=== PATIENT | male | born 1955 | race Caucasian/White ===

== ENCOUNTER 2021-09-29 09:29 | Inpatient (IN) | payer OTHER, SELFPAY ==
[~2021-09-29 09:29] MED LIST: Lorazepam 1 MG TAB PO PRN
[2021-09-29 11:15] LABS: Hemoglobin 15.7 g/dL (14.0-18.0); Mean Corpuscular HGB CONC 33.5 g/dL (32.0-36.0); Mean Corpuscular Hemoglobin 31.7 pg (27.0-31.0); Mean Corpuscular Volume 94.5 fL (78.0-98.0); Mean Platelet Volume 7.9 fL (7.4-10.4); Platelet Count 165 thou/uL (130-400); RBC Distribution Width 12.4 % (11.5-14.5); Red Blood Cell (RBC) Count 4.96 mill/uL (4.70-6.10); White Blood Cell (WBC) Count 3.8 thou/uL (4.8-10.8)
[2021-09-29 11:31] LABS: Band 5 % (5-11); Lymphocytes 19 % (21-51); MDiff Complete? YES; Metamyelocyte 1 % (0-0); Monocytes 13 % (0-10); Neutrophil 44 % (42-75); RBC Morphology Normal; Reactive Lymphocytes 15 % (0-10)
[2021-09-29 11:33] LABS: ALT (SGPT) 14 U/L (8-55); AST (SGOT) 21 U/L (5-34); Alkaline Phosphatase 81 U/L (40-110); Anion Gap 12 mmol/L (10-20); BUN (Urea Nitrogen) 10 mg/dL (8.4-25.7); Bilirubin, Total 0.4 mg/dL (0.2-1.2); Calc. Creatinine Clearance 0 mL/min (70-130); Calcium 9.6 mg/dL (7.8-10.44); Carbon Dioxide 29 mmol/L (23-31); Chloride 101 mmol/L (98-107); Globulin 2.8 g/dL (2.4-3.5); Glucose 93 mg/dL (80-115); Potassium 3.8 mmol/L (3.5-5.1); Protein, Total 6.8 g/dL (5.8-8.1); Sodium 138 mmol/L (136-145)
[2021-09-29] MEDS ORDERED: Magnesium 2 GM/50 ML BAG (IN WATER) ONE (11:45)
[2021-09-29] MEDS ORDERED: Folic Acid 1 MG, Multivitamins, Adult 10 ML in Dextrose 5 %-0.45 % NaCl 1,000 ML IV SCH (12:00)
[2021-09-29] MEDS ORDERED: Thiamine HCl 200 MG/2 ML VIAL SLOW IVP SCH (12:00)
[2021-09-29 12:28] LABS: Bacteria/HPF None Seen HPF (None Seen); Bilirubin Negative (Negative); Blood, Urine 1+ (Negative); Clarity Clear (Clear); Glucose, Urine (Dipstick) Normal (Negative); Ketone, Urine Negative (Negative); Leukocyte Negative Leu/uL (Negative); Nitrite Negative (Negative); Protein, Urine (Dipstick) 20 mg/dL (Neg-Trace); RBC/HPF 0-3 HPF (0-3); Specific Gravity, Urine 1.023 (1.002-1.036); Squamous Epithelial 0-3 HPF (0-3); Urobilinogen Normal mg/dL (Less than 2); WBC/HPF 0-3 HPF (0-3); pH, Urine 5.5 (5.0-9.0)
[2021-09-29 12:46] LABS: CKMB 1.1 ng/mL (0-6.6)
[2021-09-29] MEDS ORDERED: Aspirin Chewable 81 MG TAB ONE (13:39)
[2021-09-29 15:14] LABS: Troponin I 0.024 ng/mL (< 0.028)
[2021-09-29] MEDS ORDERED: Ondansetron ODT 4 MG TAB PO PRN ×2 (15:58→21:45)
[2021-09-29 18:28] LABS: Troponin I 0.037 ng/mL (< 0.028)
[2021-09-29 19:46] VITALS: BMI 19.8
[2021-09-29] MEDS: Sodium Chloride 0.9% 1,000 ML IV SCH (20:45)
[2021-09-29] MEDS: Famotidine 20 MG TAB PO SCH (20:45)
[2021-09-29] MEDS ORDERED: Lorazepam 1 MG TAB PO PRN (21:40)
[2021-09-29] MEDS: Lorazepam 1 MG TAB PO SCH ×3 (21:41→21:48)
[2021-09-29] MEDS ORDERED: Lorazepam 2 MG/ML VIAL IM PRN (21:45)
[2021-09-29] MEDS ORDERED: Electrolyte Replacement Protocol 1 EACH FS PRN (21:45)
[2021-09-30] MEDS: Sodium Chloride 0.9% 1,000 ML IV SCH ×4 (03:26→23:47)
[2021-09-30 04:44] LABS: Hemoglobin 16.3 g/dL (14.0-18.0); Mean Corpuscular HGB CONC 33.3 g/dL (32.0-36.0); Mean Corpuscular Hemoglobin 31.3 pg (27.0-31.0); Mean Corpuscular Volume 94.2 fL (78.0-98.0); Mean Platelet Volume 7.9 fL (7.4-10.4); Platelet Count 141 thou/uL (130-400); RBC Distribution Width 12.3 % (11.5-14.5); White Blood Cell (WBC) Count 4.5 thou/uL (4.8-10.8)
[2021-09-30] MEDS: Lorazepam 1 MG TAB PO SCH ×4 (05:20→21:56)
[2021-09-30 05:59] LABS: ALT (SGPT) 15 U/L (8-55); AST (SGOT) 26 U/L (5-34); Albumin 3.9 g/dL (3.4-4.8); Alkaline Phosphatase 76 U/L (40-110); Anion Gap 11 mmol/L (10-20); BUN (Urea Nitrogen) 9 mg/dL (8.4-25.7); Bilirubin, Total 0.4 mg/dL (0.2-1.2); Calc. Creatinine Clearance 92 mL/min (70-130); Calcium 9.1 mg/dL (7.8-10.44); Carbon Dioxide 28 mmol/L (23-31); Cardiac Risk 4.4 (Less than 4.5); Chloride 101 mmol/L (98-107); Cholesterol 175 mg/dl (< 200 Desired); Globulin 2.5 g/dL (2.4-3.5); Glucose 99 mg/dL (80-115); HDL Cholesterol 40 mg/dL (>60 Neg Risk); LDL Cholesterol, Calculated 119 mg/dL; Phosphorus 3.2 mg/dL (2.3-4.7); Potassium 3.6 mmol/L (3.5-5.1); Protein, Total 6.4 g/dL (5.8-8.1); Sodium 136 mmol/L (136-145); Triglycerides 78 mg/dL (Less than 150)
[2021-09-30] MEDS ORDERED: Lorazepam 1 MG TAB PO SCH (06:00)
[2021-09-30] MEDS ORDERED: Magnesium 2 GM/50 ML 2 GM in Premix Bag 1 BAG IVPB SCH (06:15)
[2021-09-30 06:42] LABS: Band 10 % (5-11); Lymphocytes 20 % (21-51); MDiff Complete? YES; Monocytes 13 % (0-10); Neutrophil 57 % (42-75)
[2021-09-30] MEDS ORDERED: FLU VACC QS2021-22(6MOS UP)/PF 60 MCG/0.5 ML SYRINGE IM ONE (09:00)
[2021-09-30] MEDS: Famotidine 20 MG TAB PO SCH ×2 (09:28→20:20)
[2021-09-30] MEDS: Aspirin 81 mg Enteric Coated Tablet PO SCH (09:28)
[2021-09-30] MEDS: Folic Acid 1 MG TAB PO SCH (09:28)
[2021-09-30] MEDS: Thiamine HCl 200 MG/2 ML VIAL SLOW IVP SCH (09:33)
[2021-09-30 11:10] LABS: SARS-CoV-2 PCR by NAA DETECTED (NotDetected)
[2021-09-30] MEDS: Multivitamins, Adult 10 ML, Folic Acid 1 MG in Dextrose 5 %-0.45 % NaCl 1,000 ML IV SCH (11:59)
[2021-09-30] MEDS: hydrALAZINE 20 MG/ML VIAL SLOW IVP PRN ×2 (15:54→20:21)
[2021-09-30] MEDS ORDERED: Metoprolol Tartrate 25 MG TAB PO SCH (16:15)
[2021-09-30] MEDS: DorzolamidE/Timolol 2%/0.5% Ophth Soln 10 ml Bottle EA EYE SCH (20:20)
[2021-09-30] MEDS: Latanoprost 0.005% Ophth Soln 2.5 ml Bottle EA EYE SCH (20:20)
[2021-09-30] MEDS: Metoprolol Tartrate 25 MG TAB PO SCH (20:20)
[2021-09-30] MEDS ORDERED: Lorazepam 1 MG TAB PO PRN (21:45)
[2021-10-01] MEDS: hydrALAZINE 20 MG/ML VIAL SLOW IVP PRN ×2 (00:21→05:12)
[2021-10-01] MEDS: Lorazepam 1 MG TAB PO SCH ×3 (04:57→15:30)
[2021-10-01] MEDS: Sodium Chloride 0.9% 1,000 ML IV SCH ×3 (05:00→19:34)
[2021-10-01] MEDS: Lorazepam 2 MG/ML VIAL SLOW IVP PRN (05:14)
[2021-10-01] MEDS ORDERED: Lorazepam 0.5 MG TAB PO SCH (06:00)
[2021-10-01] MEDS: Folic Acid 1 MG TAB PO SCH (09:04)
[2021-10-01] MEDS: Metoprolol Tartrate 25 MG TAB PO SCH ×2 (09:04→21:16)
[2021-10-01] MEDS: Aspirin 81 mg Enteric Coated Tablet PO SCH (09:04)
[2021-10-01] MEDS: DorzolamidE/Timolol 2%/0.5% Ophth Soln 10 ml Bottle EA EYE SCH ×2 (09:04→21:14)
[2021-10-01] MEDS: Famotidine 20 MG TAB PO SCH ×2 (09:04→21:16)
[2021-10-01] MEDS: Multivitamins, Adult 10 ML, Folic Acid 1 MG in Dextrose 5 %-0.45 % NaCl 1,000 ML IV SCH (11:00)
[2021-10-01] MEDS: Thiamine HCl 200 MG/2 ML VIAL SLOW IVP SCH (11:00)
[2021-10-01] MEDS ORDERED: Ascorbic Acid 500 mg Chewable Tablet PO SCH (16:00)
[2021-10-01] MEDS: Zinc Sulfate 220 MG CAP PO SCH (17:03)
[2021-10-01] MEDS: Latanoprost 0.005% Ophth Soln 2.5 ml Bottle EA EYE SCH (21:16)
[2021-10-01] MEDS: Enoxaparin Sodium 40 MG/0.4 ML SYRINGE SC SCH (21:16)
[2021-10-01] MEDS ORDERED: Lorazepam 1 MG TAB PO PRN (21:45)
[2021-10-02] MEDS: Lorazepam 1 MG TAB PO SCH (02:45)
[2021-10-02] MEDS: Sodium Chloride 0.9% 1,000 ML IV SCH ×2 (03:21→14:20)
[2021-10-02] MEDS: Lorazepam 0.5 MG TAB PO SCH ×2 (04:34→10:40)
[2021-10-02] MEDS ORDERED: Lorazepam 0.5 MG TAB PO PRN (06:00)
[2021-10-02] MEDS: Thiamine 100 MG TAB PO SCH ×2 (09:04→10:30)
[2021-10-02] MEDS: Aspirin 325 mg Enteric Coated Tablet PO SCH ×2 (09:04→10:30)
[2021-10-02] MEDS: Multivit, Therapeutic 1 TAB PO SCH ×2 (09:04→10:30)
[2021-10-02] MEDS: Ascorbic Acid 500 mg Chewable Tablet PO SCH ×2 (09:04→10:30)
[2021-10-02] MEDS: Ezetimibe 10 MG TAB PO SCH ×2 (09:04→10:30)
[2021-10-02] MEDS: Famotidine 20 MG TAB PO SCH ×3 (09:04→20:49)
[2021-10-02] MEDS: Zinc Sulfate 220 MG CAP PO SCH ×2 (09:04→10:30)
[2021-10-02] MEDS: Folic Acid 1 MG TAB PO SCH ×2 (09:04→10:30)
[2021-10-02] MEDS: DorzolamidE/Timolol 2%/0.5% Ophth Soln 10 ml Bottle EA EYE SCH ×2 (09:05→20:48)
[2021-10-02] MEDS: Metoprolol Tartrate 25 MG TAB PO SCH ×3 (09:05→20:49)
[2021-10-02] MEDS: Latanoprost 0.005% Ophth Soln 2.5 ml Bottle EA EYE SCH (20:49)
[2021-10-02] MEDS: Enoxaparin Sodium 40 MG/0.4 ML SYRINGE SC SCH (20:49)
[2021-10-03] MEDS: Lorazepam 2 MG/ML VIAL SLOW IVP PRN ×3 (03:27→20:47)
[2021-10-03] MEDS: hydrALAZINE 20 MG/ML VIAL SLOW IVP PRN ×2 (04:33→20:10)
[2021-10-03] MEDS ORDERED: Amlodipine 10 MG TAB PO SCH (09:00)
[2021-10-03] MEDS: Amlodipine 10 MG TAB PO SCH (10:01)
[2021-10-03] MEDS: Ascorbic Acid 500 mg Chewable Tablet PO SCH (10:03)
[2021-10-03] MEDS: Cholecalciferol (Vitamin D3) 400 UNITS TAB PO SCH (10:03)
[2021-10-03] MEDS: Aspirin 325 mg Enteric Coated Tablet PO SCH (10:03)
[2021-10-03] MEDS: DorzolamidE/Timolol 2%/0.5% Ophth Soln 10 ml Bottle EA EYE SCH ×2 (10:04→20:08)
[2021-10-03] MEDS: Ezetimibe 10 MG TAB PO SCH (10:05)
[2021-10-03] MEDS: Famotidine 20 MG TAB PO SCH ×2 (10:06→20:10)
[2021-10-03] MEDS: Folic Acid 1 MG TAB PO SCH (10:06)
[2021-10-03] MEDS: Thiamine 100 MG TAB PO SCH (10:07)
[2021-10-03] MEDS: Metoprolol Tartrate 25 MG TAB PO SCH ×2 (10:07→20:10)
[2021-10-03] MEDS: Multivit, Therapeutic 1 TAB PO SCH (10:07)
[2021-10-03] MEDS: Zinc Sulfate 220 MG CAP PO SCH (10:26)
[2021-10-03] MEDS: Latanoprost 0.005% Ophth Soln 2.5 ml Bottle EA EYE SCH (20:09)
[2021-10-03] MEDS: Enoxaparin Sodium 40 MG/0.4 ML SYRINGE SC SCH (20:10)
[2021-10-04] MEDS: Aspirin 325 mg Enteric Coated Tablet PO SCH (07:56)
[2021-10-04] MEDS: Folic Acid 1 MG TAB PO SCH (07:56)
[2021-10-04] MEDS: Amlodipine 10 MG TAB PO SCH (07:56)
[2021-10-04] MEDS: Zinc Sulfate 220 MG CAP PO SCH (07:56)
[2021-10-04] MEDS: Metoprolol Tartrate 25 MG TAB PO SCH ×2 (07:56→20:06)
[2021-10-04] MEDS: Ezetimibe 10 MG TAB PO SCH (07:57)
[2021-10-04] MEDS: Famotidine 20 MG TAB PO SCH ×2 (07:57→20:06)
[2021-10-04] MEDS: Ascorbic Acid 500 mg Chewable Tablet PO SCH (07:58)
[2021-10-04] MEDS: Thiamine 100 MG TAB PO SCH (07:58)
[2021-10-04] MEDS: Cholecalciferol (Vitamin D3) 400 UNITS TAB PO SCH (07:58)
[2021-10-04] MEDS: Multivit, Therapeutic 1 TAB PO SCH (07:58)
[2021-10-04] MEDS: DorzolamidE/Timolol 2%/0.5% Ophth Soln 10 ml Bottle EA EYE SCH ×2 (08:00→20:27)
[2021-10-04] MEDS: Lorazepam 2 MG/ML VIAL SLOW IVP PRN (13:39)
[2021-10-04] MEDS: Enoxaparin Sodium 40 MG/0.4 ML SYRINGE SC SCH (20:05)
[2021-10-04] MEDS: Lorazepam 0.5 MG TAB PO PRN (20:06)
[2021-10-04] MEDS: Acetaminophen 325 MG TAB PO PRN (20:07)
[2021-10-04] MEDS: Latanoprost 0.005% Ophth Soln 2.5 ml Bottle EA EYE SCH (20:27)
[2021-10-04] MEDS: hydrALAZINE 20 MG/ML VIAL SLOW IVP PRN (20:27)
[2021-10-05] MEDS: Multivit, Therapeutic 1 TAB PO SCH (08:13)
[2021-10-05] MEDS: Zinc Sulfate 220 MG CAP PO SCH (08:13)
[2021-10-05] MEDS: Ezetimibe 10 MG TAB PO SCH (08:13)
[2021-10-05] MEDS: Thiamine 100 MG TAB PO SCH (08:13)
[2021-10-05] MEDS: Cholecalciferol (Vitamin D3) 400 UNITS TAB PO SCH (08:13)
[2021-10-05] MEDS: Ascorbic Acid 500 mg Chewable Tablet PO SCH (08:13)
[2021-10-05] MEDS: Famotidine 20 MG TAB PO SCH ×2 (08:13→20:57)
[2021-10-05] MEDS: Aspirin 325 mg Enteric Coated Tablet PO SCH (08:13)
[2021-10-05] MEDS: Folic Acid 1 MG TAB PO SCH (08:13)
[2021-10-05 08:19] LABS: Hemoglobin 16.2 g/dL (14.0-18.0); Mean Corpuscular HGB CONC 34.2 g/dL (32.0-36.0); Mean Corpuscular Hemoglobin 31.4 pg (27.0-31.0); Mean Corpuscular Volume 91.9 fL (78.0-98.0); Mean Platelet Volume 7.9 fL (7.4-10.4); Platelet Count 181 thou/uL (130-400); Red Blood Cell (RBC) Count 5.14 mill/uL (4.70-6.10); White Blood Cell (WBC) Count 4.9 thou/uL (4.8-10.8)
[2021-10-05] MEDS: Amlodipine 10 MG TAB PO SCH (08:21)
[2021-10-05] MEDS: Metoprolol Tartrate 25 MG TAB PO SCH ×2 (08:26→20:57)
[2021-10-05] MEDS: DorzolamidE/Timolol 2%/0.5% Ophth Soln 10 ml Bottle EA EYE SCH ×2 (08:31→20:59)
[2021-10-05 08:35] LABS: Band 6 % (5-11); Lymphocytes 14 % (21-51); MDiff Complete? YES; Monocytes 13 % (0-10); Neutrophil 61 % (42-75); RBC Morphology Normal; Reactive Lymphocytes 5 % (0-10)
[2021-10-05 08:37] LABS: Anion Gap 9 mmol/L (10-20); BUN (Urea Nitrogen) 12 mg/dL (8.4-25.7); Calc. Creatinine Clearance 102 mL/min (70-130); Calcium 9.2 mg/dL (7.8-10.44); Carbon Dioxide 28 mmol/L (23-31); Chloride 104 mmol/L (98-107); Glucose 105 mg/dL (80-115); Potassium 3.7 mmol/L (3.5-5.1); Sodium 137 mmol/L (136-145)
[2021-10-05] MEDS: Lorazepam 0.5 MG TAB PO PRN ×2 (14:47→20:57)
[2021-10-05] MEDS: Lorazepam 2 MG/ML VIAL SLOW IVP PRN ×2 (15:31→21:27)
[2021-10-05] MEDS: Acetaminophen 325 MG TAB PO PRN (20:58)
[2021-10-05] MEDS: Enoxaparin Sodium 40 MG/0.4 ML SYRINGE SC SCH (20:58)
[2021-10-05] MEDS: Latanoprost 0.005% Ophth Soln 2.5 ml Bottle EA EYE SCH (20:59)
[2021-10-06] MEDS: Ezetimibe 10 MG TAB PO SCH (08:55)
[2021-10-06] MEDS: Folic Acid 1 MG TAB PO SCH (08:55)
[2021-10-06] MEDS: Multivit, Therapeutic 1 TAB PO SCH (08:55)
[2021-10-06] MEDS: Amlodipine 10 MG TAB PO SCH (08:56)
[2021-10-06] MEDS: Thiamine 100 MG TAB PO SCH (08:56)
[2021-10-06] MEDS: Cholecalciferol (Vitamin D3) 400 UNITS TAB PO SCH (08:57)
[2021-10-06] MEDS: Ascorbic Acid 500 mg Chewable Tablet PO SCH (08:57)
[2021-10-06] MEDS: Famotidine 20 MG TAB PO SCH ×2 (08:57→20:34)
[2021-10-06] MEDS: DorzolamidE/Timolol 2%/0.5% Ophth Soln 10 ml Bottle EA EYE SCH ×2 (08:57→20:48)
[2021-10-06] MEDS: Metoprolol Tartrate 25 MG TAB PO SCH ×2 (08:57→20:34)
[2021-10-06] MEDS: Aspirin 325 mg Enteric Coated Tablet PO SCH (08:57)
[2021-10-06] MEDS: Zinc Sulfate 220 MG CAP PO SCH (08:58)
[2021-10-06] MEDS: Lorazepam 2 MG/ML VIAL SLOW IVP PRN (13:42)
[2021-10-06] MEDS: Enoxaparin Sodium 40 MG/0.4 ML SYRINGE SC SCH (20:34)
[2021-10-06] MEDS: hydrALAZINE 20 MG/ML VIAL SLOW IVP PRN (20:40)
[2021-10-06] MEDS: Lorazepam 0.5 MG TAB PO PRN (20:44)
[2021-10-06] MEDS: Latanoprost 0.005% Ophth Soln 2.5 ml Bottle EA EYE SCH (20:48)
[2021-10-07] MEDS: Lorazepam 2 MG/ML VIAL SLOW IVP PRN ×2 (02:16→21:29)
[2021-10-07] MEDS: Ascorbic Acid 500 mg Chewable Tablet PO SCH (08:24)
[2021-10-07] MEDS: Aspirin 325 mg Enteric Coated Tablet PO SCH (08:24)
[2021-10-07] MEDS: Famotidine 20 MG TAB PO SCH ×2 (08:25→21:19)
[2021-10-07] MEDS: Ezetimibe 10 MG TAB PO SCH (08:25)
[2021-10-07] MEDS: Metoprolol Tartrate 25 MG TAB PO SCH ×2 (08:25→21:19)
[2021-10-07] MEDS: Multivit, Therapeutic 1 TAB PO SCH (08:25)
[2021-10-07] MEDS: Thiamine 100 MG TAB PO SCH (08:25)
[2021-10-07] MEDS: NIFEdipine XL 60 MG TAB PO SCH (08:25)
[2021-10-07] MEDS: Zinc Sulfate 220 MG CAP PO SCH (08:25)
[2021-10-07] MEDS: Folic Acid 1 MG TAB PO SCH (08:25)
[2021-10-07] MEDS: DorzolamidE/Timolol 2%/0.5% Ophth Soln 10 ml Bottle EA EYE SCH ×2 (08:26→21:28)
[2021-10-07] MEDS: Cholecalciferol (Vitamin D3) 400 UNITS TAB PO SCH (08:26)
[2021-10-07] MEDS: Enoxaparin Sodium 40 MG/0.4 ML SYRINGE SC SCH (21:20)
[2021-10-07] MEDS: Latanoprost 0.005% Ophth Soln 2.5 ml Bottle EA EYE SCH (21:28)
[2021-10-08] MEDS: Multivit, Therapeutic 1 TAB PO SCH (08:42)
[2021-10-08] MEDS: Aspirin 325 mg Enteric Coated Tablet PO SCH (08:42)
[2021-10-08] MEDS: Famotidine 20 MG TAB PO SCH ×2 (08:42→20:08)
[2021-10-08] MEDS: Folic Acid 1 MG TAB PO SCH (08:42)
[2021-10-08] MEDS: Thiamine 100 MG TAB PO SCH (08:42)
[2021-10-08] MEDS: Ascorbic Acid 500 mg Chewable Tablet PO SCH (08:43)
[2021-10-08] MEDS: Metoprolol Tartrate 25 MG TAB PO SCH ×2 (08:43→20:08)
[2021-10-08] MEDS: Zinc Sulfate 220 MG CAP PO SCH (08:43)
[2021-10-08] MEDS: Cholecalciferol (Vitamin D3) 400 UNITS TAB PO SCH (08:43)
[2021-10-08] MEDS: Ezetimibe 10 MG TAB PO SCH (08:43)
[2021-10-08] MEDS: DorzolamidE/Timolol 2%/0.5% Ophth Soln 10 ml Bottle EA EYE SCH ×2 (08:43→20:33)
[2021-10-08] MEDS: NIFEdipine XL 60 MG TAB PO SCH (08:45)
[2021-10-08] MEDS: Lorazepam 2 MG/ML VIAL SLOW IVP PRN (18:25)
[2021-10-08] MEDS: Enoxaparin Sodium 40 MG/0.4 ML SYRINGE SC SCH (20:07)
[2021-10-08] MEDS: Acetaminophen 325 MG TAB PO PRN (20:08)
[2021-10-08] MEDS: Lorazepam 0.5 MG TAB PO PRN (20:09)
[2021-10-08] MEDS: Latanoprost 0.005% Ophth Soln 2.5 ml Bottle EA EYE SCH (20:33)
[2021-10-09] MEDS: Lorazepam 2 MG/ML VIAL SLOW IVP PRN ×2 (05:35→12:38)
[2021-10-09] MEDS: Thiamine 100 MG TAB PO SCH (08:10)
[2021-10-09] MEDS: Zinc Sulfate 220 MG CAP PO SCH (08:10)
[2021-10-09] MEDS: Folic Acid 1 MG TAB PO SCH (08:11)
[2021-10-09] MEDS: Ezetimibe 10 MG TAB PO SCH (08:11)
[2021-10-09] MEDS: Aspirin 325 mg Enteric Coated Tablet PO SCH (08:11)
[2021-10-09] MEDS: Lorazepam 0.5 MG TAB PO PRN (08:11)
[2021-10-09] MEDS: Cholecalciferol (Vitamin D3) 400 UNITS TAB PO SCH (08:11)
[2021-10-09] MEDS: Multivit, Therapeutic 1 TAB PO SCH (08:11)
[2021-10-09] MEDS: NIFEdipine XL 60 MG TAB PO SCH (08:11)
[2021-10-09] MEDS: Ascorbic Acid 500 mg Chewable Tablet PO SCH (08:11)
[2021-10-09] MEDS: Famotidine 20 MG TAB PO SCH (08:11)
[2021-10-09] MEDS: DorzolamidE/Timolol 2%/0.5% Ophth Soln 10 ml Bottle EA EYE SCH (08:12)
[2021-10-09] MEDS: Metoprolol Tartrate 25 MG TAB PO SCH (08:12)
[2021-10-09 08:42] VITALS: BP 166/96; TEMP 97.4
== END 2021-10-09 17:51 | DRG 64 ==
LOC: ERS 09:29 → ERHOLD 14:18 → 2NO 19:10 → OBSVTOIN 09-30 09:37 → 2SW 09-30 15:03 → T4-B 10-04 12:30
PROVIDERS: ADMIT Family Medicine; ATTEND Internal Medicine
PROC: 4A10X4Z Monitoring of Central Nervous Electrical Activity, External Approach (ICD-10-PCS; principal; 2021-09-30)
DX: I63.9 Cerebral infarction, unspecified (principal); U07.1 COVID-19; G93.41 Metabolic encephalopathy; F10.239 Alcohol dependence with withdrawal, unspecified; I10 Essential (primary) hypertension; F17.210 Nicotine dependence, cigarettes, uncomplicated; Z79.899 Other long term (current) drug therapy
CPT/HCPCS: 36415; 70450; 70551; 71045; 80048; 80053; 80061; 80307; 81003; 81015; 82306; 82553; 82607; 82746; 83735; 84100; 84146; 84443; 84484; 85025; 93005; 93306; 93880; 95819; 95957; 96365; 96366; 96367; 96372; 96375; 96376; G0378; J0360; J1650; J2060; J3411; J3475; J7042; J7050; U0003; U0005

== ENCOUNTER 2021-10-24 13:31 | Emergency (ER) | payer BC ==
[2021-10-24 15:46] LABS: #Eosinphils 0.3 thou/uL (0.0-0.7); #Lymphocytes 2.4 thou/uL (1.20-3.40); #Monocytes 0.9 thou/uL (0.11-0.59); #Neutrophils 4.5 thou/uL (1.40-6.50); %Basophils 0.6 % (0.0-1.0); %Eosinophils 3.3 % (0.0-10.0); %Lymphocytes 29.2 % (21.0-51.0); %Monocytes 11.3 % (0.0-10.0); %Neutrophils 55.6 % (42.0-75.0); Hemoglobin 14.8 g/dL (14.0-18.0); Mean Corpuscular HGB CONC 33.7 g/dL (32.0-36.0); Mean Corpuscular Hemoglobin 31.7 pg (27.0-31.0); Mean Corpuscular Volume 94.1 fL (78.0-98.0); Platelet Count 272 thou/uL (130-400); RBC Distribution Width 11.8 % (11.5-14.5); Red Blood Cell (RBC) Count 4.68 mill/uL (4.70-6.10); White Blood Cell (WBC) Count 8.1 thou/uL (4.8-10.8)
[2021-10-24 16:09] LABS: ALT (SGPT) 14 U/L (8-55); AST (SGOT) 15 U/L (5-34); Acetaminophen Less than 6.0 mcg/mL (10.0-30.0); Albumin 3.8 g/dL (3.4-4.8); Alcohol Less than 10 mg/dL (Less than 10); Alkaline Phosphatase 83 U/L (40-110); Anion Gap 11 mmol/L (10-20); BUN (Urea Nitrogen) 16 mg/dL (8.4-25.7); Bilirubin, Total 0.3 mg/dL (0.2-1.2); Calc. Creatinine Clearance 0 mL/min (70-130); Calcium 9.5 mg/dL (7.8-10.44); Carbon Dioxide 30 mmol/L (23-31); Chloride 104 mmol/L (98-107); Globulin 2.9 g/dL (2.4-3.5); Glucose 108 mg/dL (80-115); Potassium 4.3 mmol/L (3.5-5.1); Protein, Total 6.7 g/dL (5.8-8.1); Salicylate Less than 8.0 mg/dL (15.0-30.0); Sodium 141 mmol/L (136-145)
[2021-10-24 17:07] LABS: Bilirubin Negative (Negative); Blood, Urine Negative (Negative); Clarity Clear (Clear); Glucose, Urine (Dipstick) Normal (Negative); Ketone, Urine Negative (Negative); Leukocyte Negative Leu/uL (Negative); Nitrite Negative (Negative); Protein, Urine (Dipstick) Negative (Neg-Trace); Specific Gravity, Urine 1.019 (1.002-1.036); pH, Urine 6.5 (5.0-9.0)
[2021-10-24 17:16] LABS: Amphetamine Not Detected (NotDetected); Barbiturates Screen Not Detected (NotDetected); Benzodiazepine Screen Detected (NotDetected); Cocaine Metabolite Screen Not Detected (NotDetected); Methadone Not Detected (NotDetected); Methamphetamine Not Detected (NotDetected); Opiate Screen Not Detected (NotDetected); Oxycodone Screen Not Detected (NotDetected); Phencyclidine (PCP) Not Detected (NotDetected); THC/Cannabinoid Screen Not Detected (NotDetected); Tricyclic Screen Not Detected (NotDetected)
== END 2021-10-24 17:58 | disposition home or self-care (01) ==
LOC: ERS 13:31
DX: F04 Amnestic disorder due to known physiological condition (principal); F10.20 Alcohol dependence, uncomplicated; H55.00 Unspecified nystagmus; I10 Essential (primary) hypertension; H40.9 Unspecified glaucoma; E78.5 Hyperlipidemia, unspecified; Z87.891 Personal history of nicotine dependence; Z79.82 Long term (current) use of aspirin; Z79.899 Other long term (current) drug therapy
CPT/HCPCS: 36415; 70450; 80053; 80306; 80307; 81003; 84443; 85025; 93005

== ENCOUNTER 2022-06-28 10:50 | Outpatient (CLI) | payer OTHER | END 2022-06-28 10:51 | disposition home or self-care (01) | LOC: TBSIIMAG 10:50 | PROVIDERS: ATTEND Psychiatry & Neurology Neurology | DX: G25.0 Essential tremor (principal); J32.0 Chronic maxillary sinusitis; G93.89 Other specified disorders of brain | CPT/HCPCS: 70551 ==

== ENCOUNTER 2022-09-16 07:47 | Inpatient (IN) | payer OTHER ==
[2022-09-16 08:43] LABS: #Eosinphils 0.1 thou/uL (0.0-0.7); #Lymphocytes 1.1 thou/uL (1.20-3.40); #Monocytes 0.7 thou/uL (0.11-0.59); #Neutrophils 6.1 thou/uL (1.40-6.50); %Basophils 0.4 % (0.0-1.0); %Eosinophils 0.7 % (0.0-10.0); %Lymphocytes 14.1 % (21.0-51.0); %Monocytes 9.1 % (0.0-10.0); %Neutrophils 75.8 % (42.0-75.0); Hemoglobin 14.9 g/dL (14.0-18.0); Mean Corpuscular HGB CONC 31.7 g/dL (32.0-36.0); Mean Corpuscular Hemoglobin 28.4 pg (27.0-31.0); Mean Corpuscular Volume 89.7 fl (78.0-98.0); Mean Platelet Volume 8.3 fL (7.4-10.4); Platelet Count 229 10x3/uL (130-400); RBC Distribution Width 13.2 % (11.5-14.5); Red Blood Cell (RBC) Count 5.24 mill/uL (4.70-6.10); White Blood Cell (WBC) Count 8.1 10x3/uL (4.8-10.8)
[2022-09-16 08:56] LABS: PTT 28.4 sec (22.9-36.1); Prothrombin Time 13.6 sec (12.0-14.7)
[2022-09-16 08:58] LABS: Acetaminophen Less than 10.0 mcg/mL (10.0-30.0); Alcohol Less than 10 mg/dL (Less than 10); Salicylate Less than 8.0 mg/dL (15.0-30.0)
[2022-09-16 09:04] LABS: ALT (SGPT) 13 U/L (8-55); AST (SGOT) 19 U/L (5-34); Albumin 4.4 g/dL (3.4-4.8); Alkaline Phosphatase 92 U/L (40-110); Anion Gap 13 mmol/L (10-20); BUN (Urea Nitrogen) 15 mg/dL (8.4-25.7); Bilirubin, Total 0.8 mg/dL (0.2-1.2); CK (CPK) 195 U/L (30-200); Calc. Creatinine Clearance 0 mL/min (70-130); Calcium 9.4 mg/dL (7.8-10.44); Carbon Dioxide 21 mmol/L (23-31); Chloride 110 mmol/L (98-107); Estimated GFR 86; Globulin 2.7 g/dL (2.4-3.5); Glucose 104 mg/dL (80-115); Protein, Total 7.1 g/dL (5.8-8.1); Sodium 140 mmol/L (136-145)
[2022-09-16 10:07] LABS: Bacteria/HPF None Seen HPF (None Seen); Bilirubin Negative (Negative); Blood, Urine 1+ (Negative); Clarity Clear (Clear); Glucose, Urine (Dipstick) Normal (Negative); Ketone, Urine 20 mg/dL (Negative); Leukocyte Negative Leu/uL (Negative); Nitrite Negative (Negative); Protein, Urine (Dipstick) Negative (Neg-Trace); Squamous Epithelial None Seen HPF (0-3); Urobilinogen Normal mg/dL (Less than 2); WBC/HPF 0-3 HPF (0-3); pH, Urine 5.5 (5.0-9.0)
[2022-09-16 10:10] LABS: Amphetamine Not Detected (NotDetected); Barbiturates Screen Not Detected (NotDetected); Benzodiazepine Screen Not Detected (NotDetected); Cocaine Metabolite Screen Not Detected (NotDetected); Methadone Not Detected (NotDetected); Methamphetamine Not Detected (NotDetected); Opiate Screen Not Detected (NotDetected); Oxycodone Screen Not Detected (NotDetected); Phencyclidine (PCP) Not Detected (NotDetected); THC/Cannabinoid Screen Not Detected (NotDetected); Tricyclic Screen Detected (NotDetected)
[2022-09-16 11:38] LABS: Lactic Acid 1.2 mmol/L (0.5-2.2)
[2022-09-16 13:48] LABS: SARS-CoV-2 NAA Rapid Test Not Detected (NotDetected)
[2022-09-16] MEDS: Lactated Ringer's 1,000 ML IV SCH (14:55)
[2022-09-16 16:54] VITALS: BMI 20.7
[2022-09-16] MEDS ORDERED: Non-Formulary Item 1 EACH (Fluticasone Propionate [Flovent Diskus] 50 MCG Blst.W.Dev) INH PRN (17:29)
[2022-09-16] MEDS ORDERED: Aspirin 81 mg Enteric Coated Tablet PO SCH (18:15)
[2022-09-16] MEDS: Melatonin 3 MG TAB PO SCH (20:35)
[2022-09-16] MEDS: Donepezil HCl 10 MG TAB PO SCH (20:35)
[2022-09-16] MEDS: Metoprolol Tartrate 25 MG TAB PO SCH (20:35)
[2022-09-16] MEDS: Amantadine HCl 100 mg Capsule PO SCH (20:39)
[2022-09-17] MEDS: Lactated Ringer's 1,000 ML IV SCH ×2 (00:34→11:41)
[2022-09-17 05:51] LABS: #Basophils 0.1 thou/uL (0.0-0.2); #Eosinphils 0.1 thou/uL (0.0-0.7); #Lymphocytes 2.2 thou/uL (1.20-3.40); #Neutrophils 3.8 thou/uL (1.40-6.50); %Basophils 0.8 % (0.0-1.0); %Eosinophils 1.7 % (0.0-10.0); %Lymphocytes 30.1 % (21.0-51.0); %Monocytes 14.2 % (0.0-10.0); %Neutrophils 53.3 % (42.0-75.0); Mean Corpuscular HGB CONC 30.7 g/dL (32.0-36.0); Mean Corpuscular Hemoglobin 28.2 pg (27.0-31.0); Mean Platelet Volume 8.1 fL (7.4-10.4); Platelet Count 215 10x3/uL (130-400); RBC Distribution Width 13.3 % (11.5-14.5); Red Blood Cell (RBC) Count 5.31 mill/uL (4.70-6.10); White Blood Cell (WBC) Count 7.2 10x3/uL (4.8-10.8)
[2022-09-17 06:16] LABS: Anion Gap 12 mmol/L (10-20); BUN (Urea Nitrogen) 13 mg/dL (8.4-25.7); Calc. Creatinine Clearance 87 mL/min (70-130); Calcium 8.9 mg/dL (7.8-10.44); Carbon Dioxide 20 mmol/L (23-31); Chloride 108 mmol/L (98-107); Estimated GFR 99; Glucose 99 mg/dL (80-115); Potassium 3.5 mmol/L (3.5-5.1); Sodium 136 mmol/L (136-145)
[2022-09-17] MEDS ORDERED: NALTREXONE HCL 50 MG PO SCH (09:00)
[2022-09-17] MEDS ORDERED: Cholecalciferol 1,000 UNITS (25 MCG) TAB PO SCH (09:00)
[2022-09-17] MEDS: Enoxaparin Sodium 40 MG/0.4 ML SYRINGE SC SCH (09:52)
[2022-09-17] MEDS: Aspirin 81 mg Enteric Coated Tablet PO SCH (09:53)
[2022-09-17] MEDS: Thiamine 100 MG TAB PO SCH (09:55)
[2022-09-17] MEDS: Zinc Sulfate 220 MG CAP PO SCH (09:58)
[2022-09-17] MEDS: Atorvastatin Calcium 40 MG TAB PO SCH (09:58)
[2022-09-17] MEDS: Metoprolol Tartrate 25 MG TAB PO SCH ×2 (09:58→21:04)
[2022-09-17] MEDS: Amlodipine 10 MG TAB PO SCH (09:59)
[2022-09-17] MEDS: Icosapent Ethyl 1 GM CAPSULE PO SCH ×2 (09:59→18:16)
[2022-09-17] MEDS: Folic Acid 1 MG TAB PO SCH (09:59)
[2022-09-17] MEDS: Escitalopram Oxalate 10 mg Tablet PO SCH (09:59)
[2022-09-17] MEDS: Amantadine HCl 100 mg Capsule PO SCH ×2 (10:00→21:04)
[2022-09-17] MEDS: Loratadine 10 MG TAB PO SCH (10:02)
[2022-09-17] MEDS ORDERED: Cholecalciferol (Vitamin D3) 400 UNITS TAB PO SCH (10:15)
[2022-09-17] MEDS ORDERED: Moxifloxacin 0.5% Opth Drop 3 ML BOT R EYE SCH (13:00)
[2022-09-17] MEDS: prednisoLONE 1% Ophth Susp 5 ml Bottle R EYE SCH ×4 (13:00→21:05)
[2022-09-17] MEDS: DorzolamidE/Timolol 2%/0.5% Ophth Soln 10 ml Bottle EA EYE SCH (16:22)
[2022-09-17] MEDS ORDERED: hydrALAZINE 20 MG/ML VIAL SLOW IVP PRN (17:49)
[2022-09-17] MEDS ORDERED: Haloperidol 1 MG TAB PO SCH (18:00)
[2022-09-17] MEDS: Moxifloxacin 0.5% Opth Drop 3 ML BOT R EYE SCH ×2 (18:04→21:08)
[2022-09-17] MEDS ORDERED: Latanoprost 0.005% Ophth Soln 2.5 ml Bottle EA EYE SCH (21:00)
[2022-09-17] MEDS: Melatonin 3 MG TAB PO SCH (21:04)
[2022-09-17] MEDS: Donepezil HCl 10 MG TAB PO SCH (21:05)
[2022-09-18] MEDS: Lactated Ringer's 1,000 ML IV SCH ×2 (00:52)
[2022-09-18 05:57] LABS: #Eosinphils 0.1 thou/uL (0.0-0.7); #Lymphocytes 2.2 thou/uL (1.20-3.40); #Neutrophils 3.5 thou/uL (1.40-6.50); %Basophils 0.6 % (0.0-1.0); %Eosinophils 1.4 % (0.0-10.0); %Lymphocytes 31.9 % (21.0-51.0); %Monocytes 14.6 % (0.0-10.0); %Neutrophils 51.4 % (42.0-75.0); Hemoglobin 14.7 g/dL (14.0-18.0); Mean Corpuscular HGB CONC 32.5 g/dL (32.0-36.0); Mean Corpuscular Hemoglobin 29.2 pg (27.0-31.0); Mean Corpuscular Volume 89.8 fl (78.0-98.0); Platelet Count 213 10x3/uL (130-400); RBC Distribution Width 13.1 % (11.5-14.5); Red Blood Cell (RBC) Count 5.05 mill/uL (4.70-6.10); White Blood Cell (WBC) Count 6.7 10x3/uL (4.8-10.8)
[2022-09-18 06:11] LABS: Anion Gap 10 mmol/L (10-20); BUN (Urea Nitrogen) 9 mg/dL (8.4-25.7); Calc. Creatinine Clearance 92 mL/min (70-130); Calcium 8.8 mg/dL (7.8-10.44); Carbon Dioxide 24 mmol/L (23-31); Chloride 109 mmol/L (98-107); Estimated GFR 101; Glucose 101 mg/dL (80-115); Potassium 3.4 mmol/L (3.5-5.1); Sodium 140 mmol/L (136-145)
[2022-09-18] MEDS: Enoxaparin Sodium 40 MG/0.4 ML SYRINGE SC SCH (08:30)
[2022-09-18] MEDS: Folic Acid 1 MG TAB PO SCH (08:31)
[2022-09-18] MEDS: Thiamine 100 MG TAB PO SCH (08:31)
[2022-09-18] MEDS: Escitalopram Oxalate 10 mg Tablet PO SCH (08:32)
[2022-09-18] MEDS: Zinc Sulfate 220 MG CAP PO SCH (08:32)
[2022-09-18] MEDS: Amlodipine 10 MG TAB PO SCH (08:32)
[2022-09-18] MEDS: Loratadine 10 MG TAB PO SCH (08:32)
[2022-09-18] MEDS: Atorvastatin Calcium 40 MG TAB PO SCH (08:32)
[2022-09-18] MEDS: Aspirin 81 mg Enteric Coated Tablet PO SCH (08:32)
[2022-09-18] MEDS: Metoprolol Tartrate 25 MG TAB PO SCH (08:32)
[2022-09-18] MEDS: Moxifloxacin 0.5% Opth Drop 3 ML BOT R EYE SCH ×2 (08:39→14:53)
[2022-09-18] MEDS: prednisoLONE 1% Ophth Susp 5 ml Bottle R EYE SCH ×3 (08:39→14:54)
[2022-09-18] MEDS ORDERED: Cholecalciferol (Vitamin D3) 400 UNITS TAB PO SCH (09:00)
[2022-09-18] MEDS ORDERED: Fluticasone Propionate Nasal Spray 16 gm Bottle NASAL SCH (09:00)
[2022-09-18] MEDS: Icosapent Ethyl 1 GM CAPSULE PO SCH (09:17)
[2022-09-18] MEDS: Amantadine HCl 100 mg Capsule PO SCH (09:17)
[2022-09-18] MEDS: DorzolamidE/Timolol 2%/0.5% Ophth Soln 10 ml Bottle EA EYE SCH (09:19)
[2022-09-18] MEDS ORDERED: Potassium Chloride 20 MEQ TAB PO SCH (10:00)
[2022-09-18 12:22] VITALS: BP 130/84; TEMP 99
== END 2022-09-18 15:40 | disposition home or self-care (01) | DRG 641 ==
LOC: ERS 07:47 → ERHOLD 12:14 → NEURO 16:00
PROVIDERS: ADMIT Family Medicine; ATTEND Emergency Medicine
DX: E51.2 Wernicke's encephalopathy (principal); F05 Delirium due to known physiological condition; Z66 Do not resuscitate; Z20.822 Contact with and (suspected) exposure to COVID-19; F10.10 Alcohol abuse, uncomplicated; E78.5 Hyperlipidemia, unspecified; I10 Essential (primary) hypertension; G20 Parkinson's disease; F02.80 Dementia in other diseases classified elsewhere, unspecified severity, without behavioral disturbance, psychotic disturbance, mood disturbance, and anxiety; E87.6 Hypokalemia; Z91.030 Bee allergy status; Z79.899 Other long term (current) drug therapy; Z79.82 Long term (current) use of aspirin
CPT/HCPCS: 36415; 51701; 70450; 70551; 71045; 72125; 80048; 80053; 80306; 80307; 81003; 81015; 82140; 82550; 83605; 84484; 85025; 85610; 85730; 87086; 93005; J1650; J7120

== ENCOUNTER 2022-09-20 09:53 | Outpatient (CLI) | payer OTHER | END 2022-09-20 09:54 | disposition home or self-care (01) | LOC: NM 09:53 | PROVIDERS: ATTEND Psychiatry & Neurology Neurology | DX: G25.0 Essential tremor (principal) | CPT/HCPCS: 78803; A9584 ×2 ==